=== PATIENT | male | born 2000 | race Caucasian/White ===

== ENCOUNTER 2020-09-10 11:08 | Emergency (ER) | payer BC, SELFPAY ==
[2020-09-10 11:27] VITALS: BP 133/68; PULSE 84; RESP 14; TEMP 37.4; O2SAT 98; BMI 31.5
--- NOTE | 2020-09-10 11:30 | ED.URI ---
HPI - URI/Sore Throat General Chief Complaint: Upper Respiratory Symptoms Stated Complaint: flu like symptoms Time Seen by Provider: 09/10/20 11:26 Source: patient Mode of arrival: ambulatory Limitations: no limitations History of Present Illness HPI Narrative: 1 day of headache, body aches, myalgias, loose stool MD elicited complaint: other (viral syndrome) Onset (ago): day(s) (1) Consistency: constant Severity: moderate Description of mucous: clear Able to tolerate fluids by mouth: Yes Exacerbating factors: nothing Relieving factors: nothing Associated symptoms: chills, myalgias and diarrhea Treatments prior to arrival: none Related Data Previous Rx's Medication Instructions Recorded ibuprofen 600 mg PO Q6H PRN #30 tab 09/10/20 Allergies Allergy/AdvReac Type Severity Reaction Status Date / Time No Known Allergies Allergy Unverified 03/27/20 19:20 [No Known Allergies*] N.K.D.A. Allergy Unknown Uncoded 06/08/18 00:00 Review of Systems Review of Systems: Constitutional : no Fever, positive Chills, positive fatigue, positive Malaise ENT/Mouth : no sore throat, positive runny nose Eyes: No Discharge Cardiovascular : No Chest Pain, No SOB Respiratory : No Cough, No Sputum Gastrointestinal : No Nausea, No Vomiting, pos Diarrhea Genitourinary : No Dysuria, No Urinary Frequency Musculoskeletal : positive Myalgia Skin : No rash Neuro : No Headache PMFSH Past Medical History Attestation statement: The following information was validated with the patient. Medical History No known health problems Social History Social History (Updated 09/10/20 @ 11:49 by Kenia Brower DO) Smoking Status: Current every day smoker Advance Directives: No Advance Directives Information Provided: No Physical Exam Vital Signs: Vital Signs: Last Vital Signs Temp 98.7 F 09/10/20 11:45 Pulse 75 09/10/20 11:45 Resp 16 09/10/20 11:45 BP 133/72 09/10/20 11:45 Pulse Ox 98 09/10/20 11:45 Body Mass Index 31.5 Appearance: Alert. Oriented X3. No acute distress. Eyes: Pupils equal, round and reactive to light. ENT: Pharynx normal. Neck: Normal inspection. Neck supple. CVS: Normal heart rate and rhythm. Pulses normal. Respiratory: No respiratory distress. Breath sounds normal. Abdomen: Soft and nontender. Skin: Skin warm and dry. Normal skin color. Normal skin turgor. Extremities: No lower extremity edema. No calf ttp Neuro: Oriented X 3. No motor deficit. No sensory deficit. Course Course Course Narrative: patient called and told he has COVID - patient made aware MDM - URI/Sore Throat MDM Narrative Medical decision making narrative: 20 yo male with viral syndrome, headaches, cough, loose stools no hypoxia, clear lungs test for COVID and DC home Lab Data Labs: Lab Results 09/10/20 Range/Units 11:47 Coronavirus (PCR) POSITIVE A (Negative) Influenza Type A (PCR) NEGATIVE (Negative) Influenza Type B (PCR) NEGATIVE (Negative) RSV RNA Qual (PCR) NEGATIVE (Negative) Discharge Plan Discharge Clinical Impression: Viral infection Patient Disposition: Home, Self-Care Instructions: Viral Syndrome (ED) Additional Instructions: return to ED for any worsening symptoms or concerns Prescriptions: New ibuprofen 600 mg tablet 600 mg PO Q6H PRN (Reason: pain) Qty: 30 RF: 0 Referrals: Physician,None [Primary Care Provider] - 2 days (if not better) Stand Alone Forms: Work/School Release Interventions: ED Discharge Assessment Last Done: 09/10/20 11:59 Discharge Date/Time: 09/10/20 11:59
[2020-09-10 11:45] VITALS: BP 133/72; PULSE 75; RESP 16; TEMP 37.1; O2SAT 98
--- NOTE | 2020-09-10 11:46 | PC.NURSE ---
NO SOB NOTED WITH EXERTION VOIDED 300ML
--- NOTE | 2020-09-10 11:48 | PC.NURSE ---
SEEN BY DR LEWIS NO ACUTE SOB, AFEBRILE TO BE MEDICATED ORDERED
[2020-09-10] MEDS: Acetaminophen 325 MG TABLET 650 MG PO (11:56)
[2020-09-10] MEDS: Ibuprofen 600 MG TABLET PO (11:56)
[2020-09-10 13:03] LABS: Influenza A PCR NEGATIVE (Negative); Influenza B PCR NEGATIVE (Negative); Resp Syncy Virus RNA Qual PCR NEGATIVE (Negative); SARS COV2 PCR INHOUSE POSITIVE (Negative)
== END 2020-09-10 11:59 | disposition home or self-care (01) ==
PROVIDERS: Emergency Provider Emergency Medicine
DX: U07.1 COVID-19 (principal); R50.9 Fever, unspecified; F17.200 Nicotine dependence, unspecified, uncomplicated
CPT/HCPCS: 0241U; 36415; 99283

== ENCOUNTER 2021-12-31 16:14 | Emergency (ER) | payer MEDICAID, SELFPAY ==
--- NOTE | 2021-12-31 | ECG_ITS ---
Test Reason : BACK PAIN Blood Pressure : / mmHG Vent. Rate : 064 BPM Atrial Rate : 064 BPM P-R Int : 148 ms QRS Dur : 092 ms QT Int : 360 ms P-R-T Axes : 005 -13 026 degrees QTc Int : 371 ms Normal sinus rhythm Incomplete right bundle branch block Borderline ECG When compared with ECG of 31-DEC-2021 17:07, No significant change was found Referred By: Ermias Fernandez Electronically Signed By:SHAYLA THOMAS MD
--- NOTE | ~2021-12-31 | XR_ITS ---
EXAMINATION: XR CHEST CLINICAL INFORMATION: Chest pain COMPARISON: None TECHNIQUE: Frontal view of the chest was obtained. FINDINGS: No significant abnormality is noted involving the heart, lungs, mediastinum, bony thorax or soft tissues. XR/XR chest 1V IMPRESSION: Unremarkable chest examination.
[2021-12-31 16:59] VITALS: BP 139/67; PULSE 75; RESP 16; TEMP 36.3; O2SAT 99; BMI 29.5
[2021-12-31 17:28] LABS: MANUAL DIFF FLAG NO
[2021-12-31 17:35] LABS: Basophils Absolute Auto 0.1 X10*3/uL (0.0-0.2); Basophils Percent Auto 0.6 % (0-2); Eosinophils Absolute Auto 0.2 X10*3/uL (0.0-0.4); Eosinophils Percent Auto 2.3 % (0-4); Hematocrit 46.2 % (42.0-52.0); Hemoglobin 15.7 g/dl (14.0-18.0); Imm Gran Abs Auto 0.03 X10*3/uL (0.00-0.03); Imm Gran Pct Auto 0.3 % (0.0-0.4); Lymphocytes Percent Auto 20.8 % (20-40); Mean Corpuscular Hemoglobin 28.8 pg (27.0-33.0); Mean Corpuscular Volume 84.6 fL (80.0-98.0); Mean Platelet Volume 10.2 fL (9.4-12.4); Monocytes Absolute Auto 0.8 X10*3/uL (0.1-1.2); Monocytes Percent Auto 8.3 % (2-11); Neutrophils Absolute Auto 6.3 x10*3/uL (2.0-8.3); Neutrophils Percent Auto 67.7 % (45-73); Platelet Count 293 X10*3/uL (160-400); Red Blood Count 5.46 X10*6/uL (4.60-5.80); Red Cell Distribution Width 12.7 % (11.0-16.0); White Blood Count 9.4 X10*3/uL (4.8-10.8)
[2021-12-31 17:45] LABS: Alanine Aminotransferase 48 U/L (0-40); Albumin Level 4.6 g/dL (3.5-5.0); Alkaline Phosphatase 74 U/L (39-117); Anion Gap 12 (12-20); Aspartate Amino Transferase 25 U/L (5-37); Bilirubin Total 0.8 mg/dL (0.0-1.0); Blood Urea Nitrogen 12 mg/dL (9-16); Calcium 9.9 mg/dL (8.4-10.2); Carbon Dioxide 27 mmol/L (22-29); Chloride 105 mmol/L (96-108); Creatinine Clr Calc Pharmacy 128.9; Estimated Glomerular Filt Rate > 60; Glucose Random 98 mg/dL (60-115); Sodium 140 mmol/L (135-145); Total Protein 7.9 g/dL (6.5-8.0)
[2021-12-31 17:47] LABS: Troponin-I High Sensitivity < 3.5 ng/L (<3.5-35.0)
--- NOTE | 2021-12-31 18:04 | ECG_ITS ---
Test Reason : cp Blood Pressure : / mmHG Vent. Rate : 080 BPM Atrial Rate : 080 BPM P-R Int : 134 ms QRS Dur : 094 ms QT Int : 342 ms P-R-T Axes : -06 -25 -02 degrees QTc Int : 394 ms Normal sinus rhythm Incomplete right bundle branch block Borderline ECG No previous ECGs available Referred By: Ermias Fernandez Electronically Signed By:SHAYLA THOMAS MD
--- NOTE | 2021-12-31 18:05 | ED.GENADULT ---
HPI - General Adult General Chief complaint: Back Pain/Injury Stated complaint: left back side pain,tight chest Time Seen by Provider: 12/31/21 17:31 Source: patient and machine printer hose Mode of arrival: ambulatory Limitations: no limitations History of Present Illness HPI narrative: 21 years old male came in for evaluation of chest pain and left low back pain. 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 Patient had similar symptoms happened 4 months ago. Patient also been complaining of left lower back pain, pain is been constant increased with movement or bending. No radiation of the pain, no lower extremities pain or numbness, no urinary or stool incontinence. Patient declined any drug abuse, currently is smoker and he is trying to cut down on smoking. Related Data Previous Rx's Medication Instructions Recorded ibuprofen 600 mg tablet 600 mg PO Q6H PRN pain #30 tabs 09/10/20 Allergies Allergy/AdvReac Type Severity Reaction Status Date / Time No Known Allergies Allergy Unverified 03/27/20 19:20 [No Known Allergies*] N.K.D.A. Allergy Unknown Uncoded 06/08/18 00:00 Review of Systems Review of Systems: All other systems are reviewed and are negative Constitutional: Reports as per HPI and Reports no additional constitutional complaints Eyes: Reports as per HPI and Reports no additional eye complaints Reports system reviewed and no additional complaints, except as documented Cardiovascular: Reports as per HPI and Reports no additional cardiovascular complaints Respiratory: Reports as per HPI and Reports no additional respiratory complaints Gastrointestinal: Reports as per HPI and Reports no additional gastrointestinal complaints Genitourinary: Reports no additional female genitourinary complaints Musculoskeletal: Reports no additional musculoskeletal complaints Skin/Breast: Reports system reviewed and no additional complaints, except as docu Psychiatric: Reports no additional psychiatric complaints Endocrine: Reports no additional endocrine complaints Hematologic/Lymphatic: Reports no additional hematologic/lymphatic complaints Allergic/Immunologic: Reports no additional allergic/immunologic complaints Reports system reviewed and no additional complaints, except as documented and Reports Abnormal speech present [facility] Past Medical History Medical History No known health problems Social History Social History Advance Directives: No Advance Directives Information Provided: No Physical Exam ED Vital Signs: Vital Signs - 24 hr 12/31/21 16:59 12/31/21 18:15 12/31/21 19:55 Temperature 97.4 F 98.2 F 97.8 F Pulse Rate 75 69 60 Respiratory Rate 16 16 16 Blood Pressure 139/67 123/58 L 132/63 Pulse Oximetry 99 100 99 Oxygen Delivery Method Room Air Room Air Room Air BMI result Body Mass Index 29.5 Vital signs have been reviewed as appeared to be correct. Blood pressure normal. Heart rate normal. Respiration rate normal. Temperature normal. Oxygen saturation normal. Appearance: Alert. Oriented X3. No acute distress. Head: Normal external exam. Normocephalic. Atraumatic. No Browne signs noted. No raccoon eyes noted Eyes: PERRLA. EOMI. Conjunctiva and sclera normal. Eyelids normal. ENT: TM's Normal. Pharynx normal. Uvula midline. Moist mucous membranes. No trismus noted. No drooling noted. No muffled voice noted. Neck: Normal inspection. Neck supple. FROM. No adenopathy. Thyroid Normal. No meningeal signs. No neck mass noted. CVS: Normal heart rate and rhythm. Heart sound normal. No murmurs noted. Pulses normal throughout. Respiratory: No respiratory distress. Painless inspiration. Breath sounds normal. No wheezes/rales/rhonchi noted. Chest nontender. No accessory muscle usage noted or decreased air movement noted. Abdomen: Soft and nontender. Bowel sounds normal in all 4 quadrants. No distention noted. No organomegaly noted. No visible injury noted. Back: No CVA tenderness. Full range of motion noted. Skin: Skin warm and dry. Normal skin color. Normal skin turgor. No rashes/lesions/lacerations noted. Extremities: No lower extremity edema. Extremities exhibit normal range of motion. Extremities nontender. Neuro: Oriented X 3. Cranial nerve exam: II-XII are grossly intact No motor deficit. No sensory deficit. Reflexes normal. Course Course Course Narrative: Assessment and plan. 21 years old male presented with short time of left-sided chest pain that spontaneously resolved. Patient with HEART score of 1. Chronic low back pain with no neurological deficit, will discharge using NSAIDs p.r.n.. Medical Decision Making Medical Records Medical records reviewed: Yes I reviewed the patient's medical records. Lab Data Lab results reviewed: Yes I reviewed the patient's lab results. Result diagrams: 12/31/21 17:24 12/31/21 17:23 Labs: Lab Results 12/31/21 12/31/21 12/31/21 Range/Units 17:23 17: 17:24 WBC 9.4 (4.8-10.8) X10*3/uL RBC 5.46 (4.60-5.80) X10*6/uL Hgb 15.7 (14.0-18.0) g/dl Hct 46.2 (42.0-52.0) % MCV 84.6 (80.0-98.0) fL MCH 28.8 (27.0-33.0) pg MCHC 34.0 (31.0-36.0) g/dl RDW 12.7 (11.0-16.0) % Plt Count 293 (160-400) X10*3/uL MPV 10.2 (9.4-12.4) fL Immature Gran % (Auto) 0.3 (0.0-0.4) % Neut % (Auto) 67.7 (45-73) % Lymph % (Auto) 20.8 (20-40) % [place] % (Auto) 8.3 (2-11) % Eos % (Auto) 2.3 (0-4) % Baso % (Auto) 0.6 (0-2) % Lymph # (Auto) 2.0 (1.2-4.9) X10*3/uL [place] # (Auto) 0.8 (0.1-1.2) X10*3/uL Eos # (Auto) 0.2 (0.0-0.4) X10*3/uL Baso # (Auto) 0.1 (0.0-0.2) X10*3/uL Abs Immat Gran (auto) 0.03 (0.00-0.03) X10*3/uL Absolute Neuts (auto) 6.3 (2.0-8.3) x10*3/uL Absolute Nucleated RBC 0.000 (0.0-0.012) X10*3/uL Nucleated RBC % (auto) 0.0 (0.0-0.2) /100WBC Sodium 140 (135-145) mmol/L Potassium 4.0 (3.3-5.1) mmol/L Chloride 105 (96-108) mmol/L Carbon Dioxide 27 (22-29) mmol/L Anion Gap 12 (12-20) BUN 12 (9-16) mg/dL Creatinine 1.00 (0.5-1.4) mg/dL Estim Creat Clear Calc 128.9 Estimated GFR > 60 Random Glucose 98 (60-115) mg/dL Calcium 9.9 (8.4-10.2) mg/dL Total Bilirubin 0.8 (0.0-1.0) mg/dL AST 25 (5-37) U/L ALT 48 H (0-40) U/L Alkaline Phosphatase 74 (39-117) U/L Troponin I High Sens < 3.5 (<3.5-35.0) ng/L Total Protein 7.9 (6.5-8.0) g/dL Albumin 4.6 (3.5-5.0) g/dL Urine Color Urine Appearance Urine pH (5.0-8.0) Ur Specific [place] (1.005-1.025) Urine Protein (NEG-TRACE) MG/DL Urine Glucose (UA) (NEG) MG/DL Urine Ketones (NEG) MG/DL Urine Blood (NEG) Urine Nitrite (NEG) Ur Leukocyte Esterase (NEG) 12/31/21 Range/Units 18:17 WBC (4.8-10.8) X10*3/uL RBC (4.60-5.80) X10*6/uL Hgb (14.0-18.0) g/dl Hct (42.0-52.0) % MCV (80.0-98.0) fL MCH (27.0-33.0) pg MCHC (31.0-36.0) g/dl RDW (11.0-16.0) % Plt Count (160-400) X10*3/uL MPV (9.4-12.4) fL Immature Gran % (Auto) (0.0-0.4) % Neut % (Auto) (45-73) % Lymph % (Auto) (20-40) % [place] % (Auto) (2-11) % Eos % (Auto) (0-4) % Baso % (Auto) (0-2) % Lymph # (Auto) (1.2-4.9) X10*3/uL [place] # (Auto) (0.1-1.2) X10*3/uL Eos # (Auto) (0.0-0.4) X10*3/uL Baso # (Auto) (0.0-0.2) X10*3/uL Abs Immat Gran (auto) (0.00-0.03) X10*3/uL Absolute Neuts (auto) (2.0-8.3) x10*3/uL Absolute Nucleated RBC (0.0-0.012) X10*3/uL Nucleated RBC % (auto) (0.0-0.2) /100WBC Sodium (135-145) mmol/L Potassium (3.3-5.1) mmol/L Chloride (96-108) mmol/L Carbon Dioxide (22-29) mmol/L Anion Gap (12-20) BUN (9-16) mg/dL Creatinine (0.5-1.4) mg/dL Estim Creat Clear Calc Estimated GFR Random Glucose (60-115) mg/dL Calcium (8.4-10.2) mg/dL Total Bilirubin (0.0-1.0) mg/dL AST (5-37) U/L ALT (0-40) U/L Alkaline Phosphatase (39-117) U/L Troponin I High Sens (<3.5-35.0) ng/L Total Protein (6.5-8.0) g/dL Albumin (3.5-5.0) g/dL Urine Color YELLOW Urine Appearance CLOUDY Urine pH 8.5 H (5.0-8.0) Ur Specific [place] 1.015 (1.005-1.025) Urine Protein NEG (NEG-TRACE) MG/DL Urine Glucose (UA) NEG (NEG) MG/DL Urine Ketones NEG (NEG) MG/DL Urine Blood NEG (NEG) Urine Nitrite NEG (NEG) Ur Leukocyte Esterase NEG (NEG) Imaging Data Chest x-ray: Attestation: I personally reviewed and interpreted this imaging study as follows: Radiologist's impression: Unremarkable chest examination. ECG Data Attestation: I personally reviewed and interpreted this ECG as follows: Interpretation: Normal sinus rhythm at 64 beats per minutes, left axis deviation, incomplete right bundle branch block, normal intervals, no ST-T changes. No old EKG to compare. Discharge Plan Discharge Clinical Impression: Strain of lumbar region, Chest pain of uncertain etiology Patient Disposition: Home, Self-Care Instructions: Chest Pain (ED), Low Back Strain (ED) Prescriptions: No Action ibuprofen 600 mg tablet 600 mg PO Q6H PRN (Reason: pain) Qty: 30 0RF Referrals: Physician,None [Primary Care Provider] - Stand Alone Forms: Work/School Release
[2021-12-31 18:15] VITALS: BP 123/58; PULSE 69; RESP 16; TEMP 36.8; O2SAT 100
[2021-12-31 18:24] LABS: Appearance Urine CLOUDY; Color Urine YELLOW; Glucose Urine UA NEG (NEG); Leukocyte Esterase Urine NEG (NEG); Nitrite Urine NEG (NEG); PH 8.5 (5.0-8.0); Specific Gravity - Urine 1.015 (1.005-1.025); Urine Blood NEG (NEG); Urine Ketones NEG (NEG); Urine Protein NEG (NEG-TRACE)
[2021-12-31 19:55] VITALS: BP 132/63; PULSE 60; RESP 16; TEMP 36.6; O2SAT 99
== END 2021-12-31 20:38 | disposition home or self-care (01) ==
PROVIDERS: Emergency Provider Emergency Medicine
DX: R07.9 Chest pain, unspecified (principal); S39.012A Strain of muscle, fascia and tendon of lower back, initial encounter; X58.XXXA Exposure to other specified factors, initial encounter; Y93.9 Activity, unspecified; Y92.9 Unspecified place or not applicable; Y99.9 Unspecified external cause status
CPT/HCPCS: 36415; 71045; 80053; 81003; 84484; 85025; 93005; 99284

== ENCOUNTER 2023-03-23 09:05 | Emergency (ER) | payer OTHER, SELFPAY ==
[2023-03-23 09:14] VITALS: BP 134/78; PULSE 70; RESP 18; TEMP 36.6; O2SAT 99; BMI 33.2
[2023-03-23 09:48] LABS: COVID-19 Test Positive (Negative); IDNOW Serial# BCCEAD1C
[2023-03-23 09:50] LABS: IDNOW Serial# 08D9AD1C; Strep A Nucleic Acid Negative (Negative)
[2023-03-23 09:56] LABS: IDNOW Serial# 9DB6401D; Influenza A Negative (Negative); Influenza B2 Negative (Negative)
--- NOTE | 2023-03-23 10:01 | ED.URI ---
HPI - URI/Sore Throat General Chief Complaint: Upper Respiratory Symptoms Stated Complaint: Sore Throat Headache Time Seen by Provider: 03/23/23 09:21 Source: patient and maternal fetal physician Mode of arrival: ambulatory Limitations: no limitations History of Present Illness HPI Narrative: 2-year-old otherwise healthy male presents to the ER for evaluation of a sore throat, headaches, nasal congestion and some body aches that started yesterday. He states there are staff members at work have had COVID so he is concerned he may have COVID. He denies any shortness of breath, chest pain, coughing, abdominal pain, nausea, vomiting, diarrhea or abdominal pain. No fevers. MD elicited complaint: sore throat and nasal congestion Onset (ago): day(s) (1) Consistency: progressively worsening Severity: moderate Description of mucous: clear Able to tolerate fluids by mouth: Yes Exacerbating factors: nothing Relieving factors: nothing Context: sick contacts Associated symptoms: headache, nasal congestion and sore throat Treatments prior to arrival: none Related Data Previous Rx's Medication Instructions Recorded melatonin 10 mg capsule 10 mg PO BEDTIME PRN insomnia 30 05/17/22 days #30 caps Allergies Allergy/AdvReac Type Severity Reaction Status Date / Time No Known Allergies Allergy Verified 03/23/23 09:14 [No Known Allergies*] Review of Systems Review of Systems: Yes all other systems are reviewed and are negative [facility] Past Medical History Medical History (Updated 03/23/23 @ 10:03 by DIANN Mitchell) Insomnia Obesity (BMI 30-39.9) Smoker No known health problems Surgical History No significant past surgical history Family History Family History Other No significant family history Social History Social History Housing: Apartment Patient Tobacco Use Status: Current everyday Tobacco user Tobacco use type: Cigarette Cigarette Packs Per Day: 1 Years Smoked: 1PPD/ Advance Directives: No Advance Directives Information Provided: Yes service: No Current occupational status: employed Cognitive needs: No Hearing needs: No Vision needs: No Physical Exam Vital Signs: Vital Signs: Last Vital Signs Temp 98 F 03/23/23 09:14 Pulse 70 03/23/23 09:14 Resp 18 03/23/23 09:14 BP 134/78 03/23/23 09:14 Pulse Ox 99 03/23/23 09:14 O2 Del Method Room Air 03/23/23 09:14 BMI result Body Mass Index 33.2 Appearance: Alert. Oriented X3. No acute distress. Head: normocephalic, atraumatic. Eyes: Pupils equal, round and reactive to light. ENT: Pharynx normal. No tonsillar swelling or exudate. Uvula midline. Normal tympanic membranes bilaterally. Neck: Normal inspection. Neck supple. CVS: Normal heart rate and rhythm. Pulses normal. Respiratory: No respiratory distress. Breath sounds normal. Skin: Skin warm and dry. Normal skin color. Normal skin turgor. No rashes. Extremities: No lower extremity edema. No joint swelling. Neuro/psych: Oriented X 3. Grossly normal, nonfocal. Normal speech and cognition. Medical Decision Making Medical Decision Making [facility] Narrative: 22-year-old male presenting to the ER for evaluation of headache, nasal congestion, sore throat that started yesterday afternoon COVID exposure. His vital signs are stable, he is nontoxic appearing. His physical exam is unremarkable, no tonsillar swelling or exudate. No evidence of peritonsillar abscess. Uvula is midline. Normal voice in handling secretions normally. Lungs are clear. Patient tested positive for COVID-19. he is stable for discharge home with supportive care. 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 Differential Diagnosis Differential Diagnoses: The differential diagnosis associated with the presentation includes strep, covid, flu, rsv, other viral syndrome, bronchitis, pneumonia, no evidence of peritonsillar abcsess or retropharyngeal abscess Lab Data [facility] Lab Attestation statement: I reviewed the patient's lab results. Labs: Lab Results 03/23/23 Range/Units 09:29 COVID-19 (NAV) Positive A (Negative) COVID-19 Clin Com See Note Influenza Type A ([facility]) Negative (Negative) Influenza Type B ([facility]) Negative (Negative) Influenza A & B Note See Note S. pyogenes GrpA [facility]Y Negative (Negative) External Record Review External record reviewed: Prior outpatient labs Tests considered The following testing was considered but not selected: Chest x-ray considered however lungs are clear, no productive cough Prescription Management I considered prescription management with: Antiviral ( low risk, does not qualify for Paxlovid) Critical Care Time Critical Care Time Critical Care Time: No Discharge Plan Discharge Clinical Impression: COVID-19 Patient Disposition: Home, Self-Care Instructions: Covid-19 Viral Syndrome and Novel Coronavirus (ED) Hey/Ath Additional Instructions: You were found to be COVID-19 POSITIVE today. Your oxygen levels were normal. Rest. Drink plenty of fluids. Do not go out in public while you are not feeling well. Take over the counter cold/flu medications as needed for your symptoms. Take Tylenol and/or Motrin as needed for fevers and body aches. Follow up with your doctor this week. If you develop new or worsening symptoms call 911 or come back to the ER for further evaluation. e descubri? que hoy eres POSITIVO para COVID-19. Tus niveles de ox?gabrielle jess normales. Descansar. Beber mucho l?quido. No salgas en p?blico mientras no te sientas jeanna. [place] medicamentos de venta jerome para el resfriado o la gripe seg?n sea necesario para jessa s?ntomas. [place] Tylenol y/o Motrin seg?n sea necesario para la fiebre y los viplu corporales. Sunday un seguimiento con ribeiro m?dico esta semana. Si desarrolla s?ntomas nuevos o que empeoran, llame al 911 o regrese a la valerio de emergencias para trace evaluaci?n adicional. Prescriptions: No Action melatonin 10 mg capsule 10 mg PO BEDTIME PRN (Reason: insomnia) 30 Days Qty: 30 3RF Stand Alone Forms: Work/School Release Interventions: ED Discharge Assessment Last Done: 03/23/23 10:03 Discharge Date/Time: 03/23/23 10:08 Print Language: Panamanian
== END 2023-03-23 10:08 | disposition home or self-care (01) ==
PROVIDERS: Physician Assistant; Emergency Provider Emergency Medicine Emergency Medical Services; PCP Internal Medicine
DX: U07.1 COVID-19 (principal); J02.9 Acute pharyngitis, unspecified; R51.9 Headache, unspecified; M79.10 Myalgia, unspecified site; F17.210 Nicotine dependence, cigarettes, uncomplicated; Z71.6 Tobacco abuse counseling
CPT/HCPCS: 87502; 87635; 87651; 99282; 99283

== ENCOUNTER 2024-01-02 02:49 | Emergency (ER) | payer OTHER, SELFPAY ==
--- NOTE | ~2024-01-02 | XR_ITS ---
EXAMINATION: LEFT TIB-FIB, LEFT FOOT CLINICAL INFORMATION: Pain COMPARISON: None available. TECHNIQUE: 2 views tib-fib, 3 views foot FINDINGS: No significant bone, joint or soft tissue abnormality is seen. XR/XR foot LT min 3V IMPRESSION: Negative exam.
--- NOTE | ~2024-01-02 | XR_ITS ---
EXAMINATION: LEFT TIB-FIB, LEFT FOOT CLINICAL INFORMATION: Pain COMPARISON: None available. TECHNIQUE: 2 views tib-fib, 3 views foot FINDINGS: No significant bone, joint or soft tissue abnormality is seen. XR/XR tibia fibula LT 2V IMPRESSION: Negative exam.
[2024-01-02 03:02] VITALS: BP 141/66; PULSE 82; RESP 18; TEMP 37.4; O2SAT 96; BMI 32.5
[2024-01-02 05:49] VITALS: BP 117/70; PULSE 70; RESP 18; TEMP 37.2; O2SAT 99
[2024-01-02] MEDS: Diphth,Pertus(ACell),Tet Adult 0.5 ML SYRINGE IM (07:25)
[2024-01-02] MEDS: Ondansetron ODT 4 MG TAB.RAPDIS TRANSLINGU (07:44)
[2024-01-02] MEDS: Amoxicillin/Potassium Clav 875 MG TABLET PO (07:45)
[2024-01-02] MEDS: Bacitracin Oint 0.9 GM PACKET 1 APPL TOPICAL (07:45)
[2024-01-02] MEDS: Morphine Sulfate Immed Release 15 MG TABLET PO (07:45)
--- NOTE | 2024-01-02 07:45 | ED_ITS ---
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 He has an open gouge on L gilmore and he cannot bear weight on the foot. Around the gouge it feels tingly no other injuries. MD complaint: leg injury Onset (ago): day(s) (11pm yesterday) Injury: Left: foot Type of Injury: blunt Place: work Severity: moderate Relieving factors: nothing Exacerbating factors: weight bearing Context: direct blow Associated symptoms: unable to bear weight Other symptoms: none Treatments prior to arrival: bandage Related Data Previous Rx's ?Medication ?Instructions ?Recorded melatonin 10 mg capsule 10 mg PO BEDTIME PRN insomnia 30 05/17/22 days #30 caps amoxicillin 875 mg-potassium 1 tab PO BID #10 tabs 01/02/24 clavulanate 125 mg tablet ibuprofen 600 mg tablet 600 mg PO Q6H PRN pain #30 tabs 01/02/24 morphine 15 mg immediate release 15 mg PO Q6H PRN pain #10 tabs 01/02/24 tablet Allergies Allergy/AdvReac Type Severity Reaction Status Date / Time No Known Allergies Allergy Verified 01/02/24 03:03 [No Known Allergies*] Review of Systems Review of Systems: Constitutional : No Fever, No Chills ENT/Mouth : No Ear Pain, No Hoarseness, No sore throat Eyes: No Eye Pain, No Swelling, No Redness, No Foreign Body Cardiovascular : No Chest Pain, No SOB Respiratory : No Cough, No Dyspnea Gastrointestinal : No Nausea, No Vomiting, No Diarrhea, No abdominal Pain Genitourinary : No Dysuria, No Hematuria Musculoskeletal : positive joint pain, No Myalgias, No Joint Swelling Skin : pos Skin lacerations, No rash Neuro : No Weakness, No Numbness, No Loss of Consciousness, No Dizziness, No Headache Psych : No Anxiety/Panic, No Depression All other systems reviewed and are negative [facility] Past Medical History Attestation statement: The following information was validated with the patient. Source: old records reviewed Medical History Insomnia Obesity (BMI 30-39.9) Smoker No known health problems Surgical History No significant past surgical history Family History Family History Other No significant family history Social History Social History Housing: Apartment Patient Tobacco Use Status: Current everyday Tobacco user Tobacco use type: Cigarette Cigarette Packs Per Day: 1 Years Smoked: 1PPD/ Advance Directives: No Advance Directives Information Provided: No service: No Current occupational status: employed Cognitive needs: No Hearing needs: No Vision needs: No Physical Exam Vital Signs: Vital Signs: Last Vital Signs Temp 98.9 F 01/02/24 05:49 Pulse 70 01/02/24 05:49 Resp 18 01/02/24 05:49 BP 117/70 01/02/24 05:49 Pulse Ox 99 01/02/24 05:49 O2 Del Method Room Air 01/02/24 05:49 BMI result Body Mass Index 32.5 Appearance: Alert. Oriented X3. No acute distress. Eyes: Pupils equal, round and reactive to light. ENT: Pharynx normal. Neck: Normal inspection. Neck supple. CVS: Normal heart rate and rhythm. Pulses normal. Respiratory: No respiratory distress. Breath sounds normal. Abdomen: Soft and nontender. Skin: Skin warm and dry. Normal skin color. Normal skin turgor. Extremities: L leg anterior gilmore gouge noted 3cm and abrasion, ttp dorsum of foot, calf is soft and compressible no pain with active or passive movement of foot, 2+ PT and DP pulses, SILT intact except surrounding the gouge which is not swollen no signs of infection. Neuro: Oriented X 3. No motor deficit. No sensory deficit. Medications Administered Discontinued Medications Generic Name Dose Route Start Last Admin Trade Name Freq PRN Reason Stop Dose Admin Amoxicillin/Clavulanate Potassium 875 mg 01/02/24 07:22 01/02/24 07:45 Amoxicillin/Potassium Clav 875 Mg Tablet PO 01/02/24 07:23 875 mg ONCE ONE Administration Bacitracin 1 appl 01/02/24 07:22 01/02/24 07:45 Bacitracin Oint 0.9 Gm Packet TOPICAL 01/02/24 07:23 1 appl ONCE ONE Administration Protocol Diphtheria/Tetanus/Acell Pertussis 0.5 ml 01/02/24 07:01 01/02/24 07:25 Diphth,Pertus(Acell),Tet Adult 0.5 Ml Syringe IM 01/02/24 07:02 0.5 ml .ONCE ONE Administration Morphine Sulfate 15 mg 01/02/24 07:22 01/02/24 07:45 Morphine Sulfate Immed Release 15 Mg Tablet PO 01/02/24 07:23 15 mg ONCE ONE Administration Ondansetron HCl 4 mg 01/02/24 07:22 01/02/24 07:44 Ondansetron Odt 4 Mg Tab.Rapdis TRANSLINGU 01/02/24 07:23 4 mg ONCE ONE Administration Medical Decision Making Medical Decision Making MDM Narrative: 23 yo male with crush and direct blow/soft tissue injury to LLE while at work at this time will need xrays and wound care give Tdap and start on augmentin given delay in presentation at this time he is NV intact and has soft compressible compartments, no pain with active or passive movements of the toes, no swelling other than dorsum of the foot doubt compartment syndrome - pulses intact. Differential Diagnosis Differential Diagnoses: The differential diagnosis associated with the presentation includes fracture, soft tissue injury no signs of compartment syndrome Independent Interpretation I performed an independent interpretation of an: Plain X-Ray (no fracture) Radiology Impression Discussion of test interpretation with radiology: I have reviewed the radiologist's reading. External Record Review External record reviewed: Office record Prescription Management I considered prescription management with: Pain Medication and Antibiotic Procedures Orthopedic Splinting/Casting Injury #1: Side: left Lower Extremity Injury Location: foot Lower Extremity Immobilizer: post-op shoe Other Orthopedic Equipment: crutches Discharge Plan Discharge Clinical Impression: Abrasion Crush injury of left foot Qualifiers: Encounter type: initial encounter Qualified Code(s): S97.82XA - Crushing injury of left foot, initial encounter Patient Disposition: Home, Self-Care Instructions: Abrasion (ED), Crush Injury (ED), Bone Bruise (ED) Additional Instructions: return for redness, yellow drainage, fevers, increased numbness, weakness, fevers no weight bearing for 5 days wear shoe follow up with doctor if not better in 5 days Prescriptions: New ibuprofen 600 mg tablet 600 mg PO Q6H PRN (Reason: pain) Qty: 30 0RF morphine 15 mg tablet 15 mg PO Q6H PRN (Reason: pain) Qty: 10 0RF Rx Instructions: partial fill okay; Partial Fill upon patient request. amoxicillin-pot clavulanate 875-125 mg tablet 1 tab PO BID Qty: 10 0RF No Action melatonin 10 mg capsule 10 mg PO BEDTIME PRN (Reason: insomnia) 30 Days Qty: 30 3RF Stand Alone Forms: Work/School Release Print Language: Syrian
[2024-01-02 09:20] VITALS: BP 121/76; PULSE 76; RESP 18; TEMP 36.7; O2SAT 98
--- NOTE | 2024-01-02 09:20 | PC.NURSE ---
wound previously dressed, post op shoe placed, crutch traning provided
== END 2024-01-02 09:22 | disposition home or self-care (01) ==
PROVIDERS: Emergency Provider Emergency Medicine; PCP Internal Medicine
DX: S97.82XA Crushing injury of left foot, initial encounter (principal); S91.312A Laceration without foreign body, left foot, initial encounter; M79.672 Pain in left foot; Y29.XXXA Contact with blunt object, undetermined intent, initial encounter; Y93.9 Activity, unspecified; Y92.9 Unspecified place or not applicable; Y99.0 Civilian activity done for income or pay; Z23 Encounter for immunization
CPT/HCPCS: 29515; 73590; 73630; 90471; 90715; 99284

== ENCOUNTER → 2024-01-06 09:16 | Outpatient (BNVA) | payer OTHER, SELFPAY | PROVIDERS: PCP Internal Medicine; Visit Provider Physician Assistant | DX: S97.82XA Crushing injury of left foot, initial encounter (principal); S80.812A Abrasion, left lower leg, initial encounter; W22.8XXA Striking against or struck by other objects, initial encounter; Z09 Encounter for follow-up examination after completed treatment for conditions other than malignant neoplasm | CPT/HCPCS: 99204 ==

== ENCOUNTER → 2024-01-11 10:53 | Outpatient (BNVA) | payer OTHER, SELFPAY | PROVIDERS: PCP Internal Medicine; Visit Provider Physician Assistant | DX: S81.812D Laceration without foreign body, left lower leg, subsequent encounter (principal); W22.8XXD Striking against or struck by other objects, subsequent encounter | CPT/HCPCS: 99214 ==

== ENCOUNTER 2024-10-05 12:58 | Emergency (ER) | payer OTHER, SELFPAY ==
[2024-10-05 13:08] VITALS: BP 129/58; PULSE 71; RESP 18; TEMP 36.9; O2SAT 97; BMI 34.2
--- NOTE | 2024-10-05 14:04 | ED_ITS ---
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 He was at work using a chemical for ?floor stripping. He showed me a picture of the chemical he was using that was ?bull's-eye super concentrated floor stripper. This chemical splashed onto both of his feet do his socks and shoes. He has a burning pain to the 5th toe of each foot. This happened at around 11:45 a.m. He reports that he remove the clothing and washing his feet for about 20 minutes. He presents to the ER as he has continued pain and ?raw skin to the 5th toe. ? He did not get the solution anywhere else on his body The solution appears to be primarily sodium hydroxide and butoxyethoxy. Related Data Previous Rx's ?Medication ?Instructions ?Recorded melatonin 10 mg capsule 10 mg PO BEDTIME PRN insomnia 30 05/17/22 days #30 caps amoxicillin 875 mg-potassium 1 tab PO BID #10 tabs 01/02/24 clavulanate 125 mg tablet ibuprofen 600 mg tablet 600 mg PO Q6H PRN pain #30 tabs 01/02/24 morphine 15 mg immediate release 15 mg PO Q6H PRN pain #10 tabs 01/02/24 tablet Allergies Allergy/AdvReac Type Severity Reaction Status Date / Time No Known Allergies Allergy Verified 10/05/24 13:11 [No Known Allergies*] Review of Systems 2 Integumentary/Breasts: Skin/Breast: Reports erythema and Reports wounds Psychiatric: Psychiatric: Denies anxiety PMFSH Past Medical History Medical History Insomnia Obesity (BMI 30-39.9) Smoker No known health problems Surgical History No significant past surgical history Family History Family History Other No significant family history Social History Social History Housing: Apartment Patient Tobacco Use Status: Current everyday Tobacco user Tobacco use type: Cigarette Cigarette Packs Per Day: 1 Years Smoked: 1PPD/ Smoked in Last 30 Days: Yes Use of substances other than those prescribed or required for medical reasons: No Advance Directives: No Advance Directives Information Provided: Yes service: No Current occupational status: employed Cognitive needs: No Hearing needs: No Vision needs: No Physical Exam ED Vital Signs: Vital Signs - 24 hr 10/05/24 13:08 Temperature 98.4 F Pulse Rate 71 Respiratory Rate 18 Blood Pressure 129/58 L Pulse Oximetry 97 Oxygen Delivery Method Room Air BMI result Body Mass Index 34.2 Const General: healthy appearing, comfortable, no acute distress, alert and awake Nutritional Appearance: well nourished Orientation/consciousness: patient oriented x3 HENMT Head: Yes normocephalic and Yes atraumatic Eyes Eyelids: Yes eyelids normal Conjunctivae: conjunctivae normal Sclerae: sclerae normal Corneas: corneas normal Pupils: Equal, round and reactive pupils present EOM: EOMs intact bilaterally Neck Neck: Yes full ROM Resp Effort & Inspection: normal respiratory effort, able to speak in complete sentences and not labored Skin Other: Patient has faint erythema to the plantar aspect of the 5th toes bilaterally. Approximately 1 cm area on each toe. There is no erythema spreading up the foot or lower leg. General skin exam: elasticity normal Neuro General: patient oriented x3 Cranial nerves: Yes Equal, round and reactive pupils present and Yes Bilaterally intact EOM present Cognition (Neuro): normal cognition Extrem Other: Moving all extremities well without any obvious deformities Medical Decision Making Medical Decision Making MDM Narrative: 24-year-old male presents for evaluation of what appears to be a mild chemical burn. He has a very small area of each foot affected. We will continue to irrigate to remove the alkaline. It appears to be limited to the 1st layer of skin, there are no deep wounds. There was no other injury or inhalation injury. Very low suspicion for systemic absorption Differential Diagnosis Differential Diagnoses: The differential diagnosis associated with the presentation includes Chemical burn Dermatitis Thermal burn Acidosis Discharge Plan Discharge Clinical Impression: Alkaline chemical burn of skin Patient Disposition: Home, Self-Care Instructions: Chemical Skin Burn (ED) Additional Instructions: You have a minor skin burn to both of your feet. Is important that you wear appropriate protective equipment while at work You may apply topical antibiotic once a day Keep the area clean and dry Follow-up with your primary doctor, return for new or worsening symptoms Prescriptions: No Action ibuprofen 600 mg tablet 600 mg PO Q6H PRN (Reason: pain) Qty: 30 0RF morphine 15 mg tablet 15 mg PO Q6H PRN (Reason: pain) Qty: 10 0RF Rx Instructions: partial fill okay; Partial Fill upon patient request. amoxicillin-pot clavulanate 875-125 mg tablet 1 tab PO BID Qty: 10 0RF melatonin 10 mg capsule 10 mg PO BEDTIME PRN (Reason: insomnia) 30 Days Qty: 30 3RF Stand Alone Forms: Work/School Release Print Language: Syriac
[2024-10-05 14:42] VITALS: BP 129/58; PULSE 71; RESP 18; TEMP 36.9; O2SAT 97
== END 2024-10-05 14:45 | disposition home or self-care (01) ==
PROVIDERS: Emergency Provider Emergency Medicine; PCP Internal Medicine
DX: T52.8X1A Toxic effect of other organic solvents, accidental (unintentional), initial encounter (principal); T25.53 Corrosion of first degree of toe(s) (nail); Y93.89 Activity, other specified; Y92.9 Unspecified place or not applicable; Y99.0 Civilian activity done for income or pay
CPT/HCPCS: 99283

== ENCOUNTER 2024-10-23 11:58 | Emergency (ER) | payer OTHER, SELFPAY ==
--- NOTE | ~2024-10-23 | XR_ITS ---
EXAMINATION: XR HAND, LEFT CLINICAL INFORMATION: index finger laceration with knife. fracture? COMPARISON: None available. TECHNIQUE: PA, lateral, and oblique views of the left hand. FINDINGS: No fracture, dislocation, or suspicious bone lesion. Normal alignment. Joint spaces appear normal. Soft tissue laceration to the distal second digit. No radiopaque foreign body seen. XR/XR hand LT min 3V IMPRESSION: 1. No acute bony abnormality. No fracture. 2. Laceration to the distal second digit. Electronically signed by: Torito Raymond MD 10/23/2024 12:38 PM EDT
[2024-10-23 12:04] VITALS: PULSE 107; RESP 18; TEMP 37.2; O2SAT 97; BMI 35.8
--- NOTE | 2024-10-23 12:11 | ED.GENADULT ---
HPI - General Adult General Chief complaint: Wound/Laceration Stated complaint: Finger lac Time Seen by Provider: 10/23/24 12:48 Source: patient Mode of arrival: ambulatory Limitations: no limitations History of Present Illness ED Provider: Richi Vergara HPI narrative: 24 yold male with pmh of high cholesterol and covid presents to the ED for left index finger laceration due to being cut by knife at work. 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 Patient unknown when last tetanus shot. patient states no nerve injury, nubmenss, coldness, or profuse bleeding. Related Data Previous Rx's ?Medication ?Instructions ?Recorded melatonin 10 mg capsule 10 mg PO BEDTIME PRN insomnia 30 05/17/22 days #30 caps amoxicillin 875 mg-potassium 1 tab PO BID #10 tabs 01/02/24 clavulanate 125 mg tablet ibuprofen 600 mg tablet 600 mg PO Q6H PRN pain #30 tabs 01/02/24 morphine 15 mg immediate release 15 mg PO Q6H PRN pain #10 tabs 01/02/24 tablet cephalexin 500 mg capsule 500 mg PO QID 7 days #28 caps 10/23/24 naproxen 500 mg tablet 500 mg PO BID PRN pain #14 tabs 10/23/24 Allergies Allergy/AdvReac Type Severity Reaction Status Date / Time No Known Allergies Allergy Verified 10/23/24 12:05 [No Known Allergies*] Review of Systems Review of Systems: left index laceration Yes all other systems are reviewed and are negative PMFSH Past Medical History Medical History Insomnia Obesity (BMI 30-39.9) Smoker No known health problems Surgical History No significant past surgical history Family History Family History Other No significant family history Social History Social History Housing: Apartment Patient Tobacco Use Status: Current everyday Tobacco user Tobacco use type: Cigarette Cigarette Packs Per Day: 1 Years Smoked: 1PPD/ Advance Directives: No Advance Directives Information Provided: Yes service: No Current occupational status: employed Cognitive needs: No Hearing needs: No Vision needs: No Physical Exam ED Vital Signs: Vital Signs - 24 hr 10/23/24 12:04 10/23/24 13:21 Temperature 98.9 F 98.9 F Pulse Rate 107 H 107 H Respiratory Rate 18 18 Blood Pressure 144/61 H Pulse Oximetry 97 97 Oxygen Delivery Method Room Air Room Air BMI result Body Mass Index 35.8 Const General: cooperative, healthy appearing, comfortable, no acute distress, well developed, alert, awake and Physically active Orientation/consciousness: patient oriented x3 [facility] Head: Yes normal to inspection, Yes No palpable skull fracture present, Yes normocephalic and Yes atraumatic Eyes General: appearance normal, both eyes and all related structures Neck Neck: Yes normal visual inspection, Yes full ROM, Yes no lymphadenopathy, Yes no meningeal signs, Yes trachea midline, Yes supple, No anterior neck swelling and No tender Chest Chest palpation & inspection: normal inspection of the chest and normal palpation of entire chest wall Resp Effort & Inspection: normal respiratory effort and able to speak in complete sentences Auscultation: clear to auscultation bilaterally Cardio Jugular venous distension: no JVD Heart sounds: S1 normal heart sound present and S2 normal heart sound present GI Inspection: Yes normal to inspection Palpation (GI): Soft to palpation, not firm, nontender, no guarding and not rigid General: Yes no CVA tenderness Back/Spine/Pelvis Back: no CVA tenderness and No back tenderness Skin General skin exam: no rashes or lesions noted, elasticity normal and turgor normal Neuro General: patient oriented x3, gait normal, tone normal, moves all extremities, Normal light touch and pain sensation, no meningeal signs, no focal motor deficits and CN's II-XI intact bilaterally Extrem General: Yes normal to inspection, Yes full ROM and Yes capillary refill normal Hand/finger images: 1. positive for superficial laceration. negative for active bleeding. negative for signs of tendon or nerve injury. negative for erythema, deformity, or ecchymosis. capillary refill intact. rest of extremity normal. motor, neuro, and vascular exam is intact. 2. positive for superficial laceration. negative for active bleeding. negative for signs of tendon or nerve injury. negative for erythema, deformity, or ecchymosis. capillary refill intact. rest of extremity normal. motor, neuro, and vascular exam is intact. Psych Appearance: grossly normal, well kempt and not disheveled Course Course Course Narrative: RME: [age] year male presents to the ED for right index finger laceration caused by dirty knife at work. Patient states he was cutting a towel and by accident the knife cut his finger. Patient states tetanus vaccine over 5 years. Patient has complete range of motion of finger. Medications Administered Discontinued Medications Generic Name Dose Route Start Last Admin Trade Name Freq PRN Reason Stop Dose Admin Diphtheria/Tetanus/Acell Pertussis 0.5 ml 10/23/24 12:09 10/23/24 13:04 Diphth,Pertus(Acell),Tet Adult 0.5 Ml Syringe IM 10/23/24 12:10 0.5 ml .ONCE ONE Administration Ibuprofen 800 mg 10/23/24 12:09 10/23/24 13:04 Ibuprofen 800 Mg Tablet PO 10/23/24 12:10 800 mg ONCE ONE Administration Medical Decision Making Medical Decision Making MDM Narrative: 24-year-old male presents to ED left index finger laceration caused by dirty knife used to cut tile while at work. Patient has complete range of motion of finger. Capillary refills intact. Negative for any signs of tendon or nerve injury. X-ray negative for any fracture. Patient given Tdap and Motrin. Patient will be discharged with antibiotics informed to follow up with work connection. Patient explained worrisome signs and informed to return to the ED immediately if he has them. no need for lacereation repair. NOt suspecting cellulitits, comparmtent syndrome, arterial occlusion, tendon/nerve injury, fracture, or any other life threatening etiology. Differential Diagnosis Differential Diagnoses: The differential diagnosis associated with the presentation includes (finger laceration, fracture, abraions) Admission/Observation Consideration of admission/observation: Escalation of care including admission/observation considered Independent Historian Clinical information obtained from an independent historian. History obtained from or confirmed by: Other (patient) Prescription Management I considered prescription management with: Pain Medication and Antibiotic Discharge Plan Discharge Clinical Impression: Finger laceration Patient Disposition: Home, Self-Care Instructions: Laceration (ED), Finger Laceration (ED), Laceration Without Closure (ED) Additional Instructions: Recommend follow-up with work connection. Return to the ED immediately for any redness, pus discharge, foul odor, red streaks, bluish black discoloration, numbness/tingling, inability to move finger, or any other concerning symptoms. Recommend being compliant with antibiotic. Prescriptions: New cephalexin 500 mg capsule 500 mg PO QID 7 Days Qty: 28 0RF naproxen 500 mg tablet 500 mg PO BID PRN (Reason: pain) Qty: 14 0RF No Action ibuprofen 600 mg tablet 600 mg PO Q6H PRN (Reason: pain) Qty: 30 0RF morphine 15 mg tablet 15 mg PO Q6H PRN (Reason: pain) Qty: 10 0RF Rx Instructions: partial fill okay; Partial Fill upon patient request. amoxicillin-pot clavulanate 875-125 mg tablet 1 tab PO BID Qty: 10 0RF melatonin 10 mg capsule 10 mg PO BEDTIME PRN (Reason: insomnia) 30 Days Qty: 30 3RF Referrals: [facility] [Outside] (Left index finger laceration) Stand Alone Forms: Work/School Release Interventions: ED Discharge Assessment Last Done: 10/23/24 13:21 Discharge Date/Time: 10/23/24 13:25 Print Language: Comoran
[2024-10-23] MEDS: Diphth,Pertus(ACell),Tet Adult 0.5 ML SYRINGE IM (13:04)
[2024-10-23] MEDS: Ibuprofen 800 MG TABLET PO (13:04)
--- NOTE | 2024-10-23 13:10 | PC.NURSE ---
PT MEDICATED IN TRIAGE PRIOR TO D/C.
[2024-10-23 13:21] VITALS: BP 144/61; PULSE 107; RESP 18; TEMP 37.2; O2SAT 97
== END 2024-10-23 13:25 | disposition home or self-care (01) ==
PROVIDERS: Emergency Provider Emergency Medicine; PCP Internal Medicine
DX: S61.211A Laceration without foreign body of left index finger without damage to nail, initial encounter (principal); W26.0XXA Contact with knife, initial encounter; Y93.H3 Activity, building and construction; Y92.89 Other specified places as the place of occurrence of the external cause; Y99.0 Civilian activity done for income or pay
CPT/HCPCS: 73130; 90471; 90715; 99283; 99284

== ENCOUNTER → 2024-10-23 12:09 | Outpatient (BNV) | payer OTHER, SELFPAY | PROVIDERS: Emergency Provider Emergency Medicine; PCP Internal Medicine; Visit Provider Radiology Diagnostic Radiology | DX: S61.211A Laceration without foreign body of left index finger without damage to nail, initial encounter (principal) | CPT/HCPCS: 73130 ==

== ENCOUNTER 2025-04-01 18:17 | Emergency (ER) | payer SELFPAY ==
[2025-04-01 18:18] VITALS: BP 149/77; PULSE 89; RESP 16; TEMP 36.4; O2SAT 97; BMI 25.1
--- NOTE | 2025-04-01 18:40 | ED.EYEPROB ---
HPI - Eye Problem General Chief complaint: Eye Problems Stated complaint: lt eye redness ? something in eye Time Seen by Provider: 04/01/25 18:35 Source: patient Mode of arrival: ambulatory Limitations: no limitations History of Present Illness ED Provider: PATRICIA ESPINOSA PA-C HPI Narrative: 24 year old male presents to the ED today for evaluation of left eyelid swelling x yesterday. Reports feeling tiny balls under his upper eyelid. He has not trialed anything [id number]/ at home for symptoms. Denies any blunt injury or trauma. He works around [employer] and does not know if anything flew into his eye yesterday. Denies any drainage from the eye or crusting. Denies any vision changes. Does not wear corrective lenses. Related Data Previous Rx's ?Medication ?Instructions ?Recorded melatonin 10 mg capsule 10 mg PO BEDTIME PRN insomnia 30 11 days #30 caps amoxicillin 875 mg-potassium 1 tab PO BID #10 tabs 01/02/24 clavulanate 125 mg tablet ibuprofen 600 mg tablet 600 mg PO Q6H PRN pain #30 tabs 01/02/24 morphine 15 mg immediate release 15 mg PO Q6H PRN pain #10 tabs 01/02/24 tablet cephalexin 500 mg capsule 500 mg PO QID 7 days #28 caps 10/23/24 naproxen 500 mg tablet 500 mg PO BID PRN pain #14 tabs 10/23/24 Allergies Allergy/AdvReac Type Severity Reaction Status Date / Time No Known Allergies (No Known Allergy Verified 04/01/25 18:22 Allergies*) Review of Systems Review of Systems: Yes all other systems are reviewed and are negative [facility] Past Medical History Attestation statement: The following information was validated with the patient. Source: old records reviewed and nursing notes reviewed Medical History Insomnia Obesity (BMI 30-39.9) Smoker No known health problems Surgical History No significant past surgical history Family History Family History Other No significant family history Social History Social History (Reviewed 04/01/25 @ 19:32 by ROBERTO Guy Housing: Apartment Patient Tobacco Use Status: Current everyday Tobacco user Tobacco use type: Cigarette Cigarette Packs Per Day: 1 Years Smoked: 1PPD/ Advance Directives: No Advance Directives Information Provided: Yes service: No Current occupational status: employed Cognitive needs: No Hearing needs: No Vision needs: No Physical Exam Vital Signs: Vital Signs: Last Vital Signs Temp 97.6 F 04/01/25 18:18 Pulse 89 04/01/25 18:18 Resp 16 04/01/25 18:18 BP 149/77 H 04/01/25 18:18 Pulse Ox 97 04/01/25 18:18 O2 Del Method Room Air 04/01/25 18:18 BMI result Body Mass Index 25.1 Hypertensive, vitals otherwise WNL General: Well appearing, in no acute distress. Skin: Warm, dry, intact. No rashes or lesions. Head: Normocephalic, atraumatic. EENT: No enophthalmous or exopthalmous. EOMs intact without pain or entrapment. PERRLA. +mild swelling noted to outer portion of left upper eyelid. No photophobia. No obvious foreign body or abrasion. No conjunctival injection or chemosis. No hazy cornea. No FB noted on eyelid eversion, there is a stye noted to the lateral aspect of left upper eyelid. On tetracaine exam, no reuptake to suggest abrasion or fb. No ulceration. No dendritic lesions. Cardiac: Chest wall symmetric Lungs: Normal respiratory effort without accessory muscle use Ext: Upper and lower extremities atraumatic, without tenderness, deformity, swelling or erythema Neuro: AOx3. Normal speech. Ambulating with steady gait. Psych: Appropriate mood and affect. Responds appropriately to questions. Course Course Course Narrative: Physical exam is consistent with a stye. No evidence of corneal abrasion or foreign body on fluorescein eval. Educated him on stye management. Patient has remained stable throughout ED visit today. Discussed worrisome signs and symptoms and when to return to the ED. All questions answered at this time. Patient is agreeable with disposition and stable for discharge. Medications Administered Discontinued Medications Generic Name Dose Route Start Last Admin Trade Name Freq PRN Reason Stop Dose Admin Fluorescein Sodium 1 strip 04/01/25 18:35 04/01/25 18:44 Fluorescein Sodium Strip EYE-LEFT 04/01/25 18:36 1 strip ONCE ONE Administration Tetracaine HCl 1 drop 04/01/25 18:35 04/01/25 18:44 Tetracaine Hcl/Pf 0.5% Oph Reyna 4 Ml Drops EYE-LEFT 04/01/25 18:36 1 drop ONCE ONE Administration Medical Decision Making Medical Decision Making [facility] Narrative: 24 year old male presents to the ED today for evaluation of left eyelid swelling x yesterday. Hypertensive, vitals otherwise WNL. Afebrile. On exam, EOMs intact without pain. mild swelling noted to outer portion of left upper eyelid. No photophobia. No obvious foreign body or abrasion. No conjunctival injection or chemosis. No hazy cornea. No FB noted on eyelid eversion, there is a stye noted to the lateral aspect of left upper eyelid. On tetracaine exam, no reuptake to suggest abrasion or fb. No ulceration. No dendritic lesions. Differential diagnosis includes chelazion, hordeolum, blepharitis, conjunctivitis, corneal abrasion, corneal ulcer, corneal foreign body. Unlikely preseptal or orbital cellulitis, glaucoma, iritis, keratitis, scleritis, uveitis. Plan for fluorescein/tetracaine and disposition. Differential Diagnosis Differential Diagnoses: The differential diagnosis associated with the presentation includes as above. Admission/Observation not indicated Social Determinants Patient?s care significantly limited by Social Determinants of Health including: Other Social Determinant of Health Critical Care Time Critical Care Time Critical Care Time: No Discharge Plan Discharge Clinical Impression: Hordeolum Patient Disposition: Home, Self-Care Instructions: Stye (ED) Additional Instructions: You have a stye. See home care instructions. Return with any new/worsening symptoms. In the case of an emergency call 911. Prescriptions: No Action ibuprofen 600 mg tablet 600 mg PO Q6H PRN (Reason: pain) Qty: 30 0RF morphine 15 mg tablet 15 mg PO Q6H PRN (Reason: pain) Qty: 10 0RF Rx Instructions: partial fill okay; Partial Fill upon patient request. amoxicillin-pot clavulanate 875-125 mg tablet 1 tab PO BID Qty: 10 0RF cephalexin 500 mg capsule 500 mg PO QID 7 Days Qty: 28 0RF naproxen 500 mg tablet 500 mg PO BID PRN (Reason: pain) Qty: 14 0RF melatonin 10 mg capsule 10 mg PO BEDTIME PRN (Reason: insomnia) 30 Days Qty: 30 3RF Referrals: Angel Rivera MD [Primary Care Provider, Internal Medicine] Discharge Date/Time: 04/01/25 18:49 Print Language: Pashto
[2025-04-01] MEDS: Fluorescein Sodium STRIP 1 STRIP EYE-LEFT (18:44)
[2025-04-01] MEDS: Tetracaine HCl/PF 0.5% Oph Sol 4 ML DROPS 1 DROP EYE-LEFT (18:44)
== END 2025-04-01 18:49 | disposition home or self-care (01) ==
PROVIDERS: Emergency Provider Emergency Medicine; PCP Internal Medicine
DX: H00.014 Hordeolum externum left upper eyelid (principal); H02.844 Edema of left upper eyelid
CPT/HCPCS: 99281; 99283